=== PATIENT | female | born 2000 | race American Indian/Alaskan Native ===

== ENCOUNTER 2022-03-25 12:27 | Emergency (ER) | payer OTHER ==
[2022-03-25 13:26] LABS: Bilirubin,Urine NEG (Negative); Blood,Urine NEG (Negative); Color,Urine Yellow (Yellow); Protein,Urine <15 mg/dL mg/dL (Negative); Urobilinogen,Urine < 2.0 mg/dL (<2.0)
[2022-03-25 13:34] LABS: Bacteria,Urine 1+ /HPF (Negative); Mucus,Urine FEW /HPF; RBC,Urine < 1.0 /HPF (0.0-6.0)
[2022-03-25 13:36] LABS: HCG Qualitative,Urine Positive (Negative)
[2022-03-25 14:00] LABS: Basophils % (Auto) 0.3 % (0.0-1.8); Eosinophils # (Auto) 0.1 K/mm3 (0.0-0.4); Eosinophils % (Auto) 0.7 % (0.0-4.3); Hematocrit 34.6 % (30.3-42.9); Hemoglobin 11.8 gm/dl (10.1-14.3); Lymphocytes # (Auto) 1.8 K/mm3 (1.2-5.4); Lymphocytes % (Auto) 21.4 % (13.4-35.0); Mean Corpuscular HGB Conc 34 % (30-34); Mean Corpuscular Volume 88 fl (79-97); Monocytes # (Auto) 0.3 K/mm3 (0.0-0.8); Monocytes % (Auto) 3.9 % (0.0-7.3); Platelet Count 188 K/mm3 (140-440); Red Blood Count 3.92 M/mm3 (3.65-5.03); Red Cell Distribution Width 15.4 % (13.2-15.2)
[2022-03-25 14:14] LABS: Alanine Aminotransferase 9 units/L (7-56); Albumin 4.1 g/dL (3.9-5); Blood Urea Nitrogen 6 mg/dL (7-17); Calcium 9.9 mg/dL (8.4-10.2); Hemolysis Index 1
[2022-03-25 14:28] LABS: BUN/Creatinine Ratio 10
--- NOTE | 2022-03-25 16:30 | Emergency Department Report ---
ED Abdominal Pain HPI - General Chief Complaint: Abdominal Pain Stated Complaint: CHEST PAIN/VOMITING BLOOD/HEADACHE Source: patient Mode of arrival: Ambulatory Limitations: No Limitations - History of Present Illness Initial Comments: 13 weeks 2 Para 0 A0 presents to the ED complaining of nausea and vomiting x1 day. Patient stated that 1 day ago she vomited x1. She states a headache on yesterday but no headache today. Patient denies any abdominal pain at present time patient states that she is currently followed by [facility]. Patient states that she was outside in the sun when she began to have a headache on yesterday. Patient denies any vomiting today. She was drinking and eating Landry when walking in the room. She was able to tolerate food without any difficulty. She denies any vaginal bleeding at present time. Patient is alert and oriented x3. No acute distress noted. No ill appearance noted. Onset/Timin -: days(s) Severity scale (0 -10): 0 - Related Data Previous Rx's Medication Instructions Recorded Last Taken Type Doxylamine Succinate/Vit B6 1 each PO DAILY 30 Days #30 tab 03/25/22 Unknown Rx [Diclegis Dr 10-10 mg Tablet] Allergies Allergy/AdvReac Type Severity Reaction Status Date / Time vancomycin AdvReac Unknown Verified 03/25/22 12:37 ED Review of Systems ROS: Stated complaint: CHEST PAIN/VOMITING BLOOD/HEADACHE Other details as noted in HPI Constitutional: denies: chills, fever Eyes: denies: eye pain, eye discharge, vision change ENT: denies: ear pain, throat pain Respiratory: denies: cough, shortness of breath, wheezing Cardiovascular: denies: chest pain, palpitations Endocrine: no symptoms reported Gastrointestinal: nausea. denies: abdominal pain, diarrhea Genitourinary: denies: urgency, dysuria, discharge Musculoskeletal: denies: back pain, joint swelling, arthralgia Skin: denies: rash, lesions Neurological: denies: headache, weakness, paresthesias Psychiatric: denies: anxiety, depression Hematological/Lymphatic: denies: easy bleeding, easy bruising ED Past Medical Hx - Past Medical History Previous Medical History?: Yes Additional medical history: HYPOGLYCEMIA, HERNIATED DISC, NO SURGERY - Medications Home Medications: Home Medications Medication Instructions Recorded Confirmed Last Taken Type Doxylamine Succinate/Vit B6 1 each PO DAILY 30 Days #30 tab 03/25/22 Unknown Rx [Diclegis Dr 10-10 mg Tablet] ED Physical Exam - General Limitations: No Limitations General appearance: alert, in no apparent distress - Head Head exam: Present: atraumatic, normocephalic - Eye Eye exam: Present: normal appearance - ENT ENT exam: Present: mucous membranes moist - Neck Neck exam: Present: normal inspection - Respiratory Respiratory exam: Present: normal lung sounds bilaterally. Absent: respiratory distress - Cardiovascular Cardiovascular Exam: Present: regular rate, normal rhythm. Absent: systolic murmur, diastolic murmur, rubs, gallop - GI/Abdominal GI/Abdominal exam: Present: soft, normal bowel sounds - Extremities Exam Extremities exam: Present: normal inspection - Back Exam Back exam: Present: normal inspection - Neurological Exam Neurological exam: Present: alert, oriented X3 - Psychiatric Psychiatric exam: Present: normal affect, normal mood - Skin Skin exam: Present: warm, dry, intact, normal color. Absent: rash ED Course Vital Signs 03/25/22 03/25/22 12:34 15:58 Temperature 98.5 F 98.0 F Pulse Rate 77 89 Respiratory 14 18 Rate Blood Pressure 149/93 Blood Pressure 147/77 [Right] O2 Sat by Pulse 100 100 Oximetry ED Medical Decision Making - Lab Data Result diagrams: 03/25/22 13:18 03/25/22 13:18 - Medical Decision Making 13 weeks 2 Para 0 A0 presents to the ED complaining of nausea and vomiting x1 day. Patient stated that 1 day ago she vomited x1. She states a headache on yesterday but no headache today. Patient denies any abdominal pain at present time patient states that she is currently followed by [facility]. Patient states that she was outside in the sun when she began to have a headache on yesterday. Patient denies any vomiting today. She was drinking and eating Landry when walking in the room. She was able to tolerate food without any difficulty. She denies any vaginal bleeding at present time. Patient is alert and oriented x3. No acute distress noted. No ill appearance noted. Physical examination is unremarkable Rechecked the patient is resting quietly quietly and comfortable and feeling better. I discussed the results of diagnostic study, my clinical impression and the plan for further treatment with the patient. Patient agrees with plan and discharge at this present time. All question addressed. I have given the patient instruction regarding a diagnosis ,expectation ,follow-up and return precaution. I explained to the patient that emergent condition may arise and to return to the ED for new worsen and any new persisting condition. I have explained the importance of following up with the primary care physician or referral physician listed below has instructed. The patient verbalized understanding of discharge instruction. Abnormal Lab Results 03/25/22 03/25/22 03/25/22 12:39 12:45 13:18 WBC 8.4 RBC 3.92 Hgb 11.8 Hct 34.6 MCV 88 MCH 30 MCHC 34 RDW 15.4 H Plt Count 188 Lymph % (Auto) 21.4 [place] % (Auto) 3.9 Eos % (Auto) 0.7 Baso % (Auto) 0.3 Lymph # (Auto) 1.8 [place] # (Auto) 0.3 Eos # (Auto) 0.1 Baso # (Auto) 0.0 Seg Neutrophils % 73.7 H Seg Neutrophils # 6.2 Sodium Potassium Chloride Carbon Dioxide Anion Gap BUN Creatinine Estimated GFR BUN/Creatinine Ratio Glucose POC Glucose 83 Calcium Total Bilirubin AST ALT Alkaline Phosphatase Total Protein Albumin Albumin/Globulin Ratio Urine Color Yellow Urine Turbidity Hazy Urine pH 5.0 Ur Specific [place] 1.018 Urine Protein <15 mg/dl Urine Glucose (UA) Neg Urine Ketones Neg Urine Blood Neg Urine Nitrite Neg Urine Bilirubin Neg Urine Urobilinogen < 2.0 Ur Leukocyte Esterase Neg Urine WBC (Auto) 3.0 Urine RBC (Auto) < 1.0 U Epithel Cells (Auto) 13.0 Urine Bacteria (Auto) 1+ Urine Mucus Few Urine HCG, Qual Positive A 03/25/22 13:18 WBC RBC Hgb Hct MCV MCH MCHC RDW Plt Count Lymph % (Auto) [place] % (Auto) Eos % (Auto) Baso % (Auto) Lymph # (Auto) [place] # (Auto) Eos # (Auto) Baso # (Auto) Seg Neutrophils % Seg Neutrophils # Sodium 135 L Potassium 3.8 Chloride 100.8 Carbon Dioxide 23 Anion Gap 15 BUN 6 L Creatinine 0.6 Estimated GFR > 60 BUN/Creatinine Ratio 10 Glucose 101 H POC Glucose Calcium 9.9 Total Bilirubin 0.20 AST 15 ALT 9 Alkaline Phosphatase 51 Total Protein 7.9 Albumin 4.1 Albumin/Globulin Ratio 1.1 Urine Color Urine Turbidity Urine pH Ur Specific [place] Urine Protein Urine Glucose (UA) Urine Ketones Urine Blood Urine Nitrite Urine Bilirubin Urine Urobilinogen Ur Leukocyte Esterase Urine WBC (Auto) Urine RBC (Auto) U Epithel Cells (Auto) Urine Bacteria (Auto) Urine Mucus Urine HCG, Qual Critical care attestation.: If time is entered above; I have spent that time in minutes in the direct care of this critically ill patient, excluding procedure time. ED Disposition Clinical Impression: Nausea and vomiting during Disposition: 01 HOME / SELF CARE / HOMELESS Is pt being admited?: No Does the pt Need Aspirin: No Condition: Stable Instructions: Abdominal Pain (ED), Hyperemesis Gravidarum Additional Instructions: Take medication as prescribed Return to ED for worsening symptoms Prescriptions: Doxylamine Succinate/Vit B6 [Mikalas 10-10 mg Tablet] 1 each PO DAILY 30 Days #30 tab Referrals: [facility] [Provider Group] - 3-5 Days Forms: Work/School Release Form(ED) Time of Disposition: 16:35
[2022-03-25 18:05] VITALS: BP 131/79
== END 2022-03-25 18:03 | disposition home or self-care (01) ==
LOC: ED 12:27
DX: O21.9 Vomiting of pregnancy, unspecified (principal); Z3A.13 13 weeks gestation of pregnancy; E16.2 Hypoglycemia, unspecified; Z88.1 Allergy status to other antibiotic agents
CPT/HCPCS: 36415; 80053; 81001; 81025; 82962; 85025; 99283

== ENCOUNTER 2022-04-30 15:40 | Emergency (ER) | payer OTHER ==
--- NOTE | 2022-04-30 16:09 | Emergency Department Report ---
<MARKOSOWMYA A - Last Filed: 04/30/22 16:10> ED Female HPI - General Stated complaint: NAUSEA/PRESSURE IN LOWER L ABD Time Seen by Provider: 04/30/22 16:07 Source: patient Mode of arrival: Ambulatory Limitations: No Limitations - History of Present Illness Initial comments: AB 1 MIS 1 LMP 12/17 NO VAG BLEED OR DC CO LLQ PAIN AND PRESSURE MY OBGYN THEY COULD NOT SEE HER 18W PREG PRIOR U/S NO ECTOPIC - Related Data Allergies Allergy/AdvReac Type Severity Reaction Status Date / Time vancomycin AdvReac Unknown Verified 04/30/22 16:11 ED Review of Systems Comment: All other systems reviewed and negative ED Past Medical Hx - Past Medical History Previous Medical History?: Yes Additional medical history: HYPOGLYCEMIA, HERNIATED DISC, NO SURGERY - Surgical History Past Surgical History?: Yes - Family History Family history: no significant - Social History Smoking Status: Never Smoker Substance Use Type: None ED Physical Exam - General Limitations: No Limitations General appearance: alert, in no apparent distress - Head Head exam: Present: atraumatic, normocephalic - Eye Eye exam: Present: normal appearance - ENT ENT exam: Present: mucous membranes moist - Neck Neck exam: Present: normal inspection - Respiratory Respiratory exam: Present: normal lung sounds bilaterally. Absent: respiratory distress - Cardiovascular Cardiovascular Exam: Present: regular rate, normal rhythm. Absent: systolic murmur, diastolic murmur, rubs, gallop - GI/Abdominal GI/Abdominal exam: Present: soft, normal bowel sounds - Extremities Exam Extremities exam: Present: normal inspection - Back Exam Back exam: Present: normal inspection - Neurological Exam Neurological exam: Present: alert, oriented X3 - Psychiatric Psychiatric exam: Present: normal affect, normal mood - Skin Skin exam: Present: warm, dry, intact, normal color. Absent: rash ED Medical Decision Making - Medical Decision Making Vital Signs 04/30/22 16:07 Temperature 98.6 F Pulse Rate 89 Respiratory 18 Rate Blood Pressure 149/77 [Right] O2 Sat by Pulse 98 Oximetry TO ER FOR EVAL ED Disposition Clinical Impression: Abdominal pain during in second trimester, Hyperemesis gravidarum Disposition: 01 HOME / SELF CARE / HOMELESS Is pt being admited?: No Does the pt Need Aspirin: No Condition: Stable Instructions: Abdominal Pain During , [id number], Hyperemesis Gravidarum, Nausea and Vomiting, Adult, [id number] Additional Instructions: All lab test results are reviewed and are all nonactionable. Maintain a clear liquid diet for 12 to 24 hours, take medication as needed for nausea and vomiting. Therefore take medication with food, drink plenty of fluids and follow-up with your primary care physician in 7 to 10 days for reevaluation. Return to the ED immediately if symptoms get worse. Prescriptions: Promethazine [Phenergan] [address] QHS PRN #15 supp.rect PRN Reason: Nausea Acetaminophen [Tylenol] 500 mg PO Q6HR PRN #40 tablet PRN Reason: Pain , Severe (7-10) Ondansetron [Zofran Odt] 4 mg PO Q6HR PRN #20 tab.rapdis PRN Reason: Nausea Referrals: FRAN RUANO MD [Primary Care Provider] - 3-5 Days Forms: Work/School Release Form(ED) Print Language: BELARUSIAN <SURESH PIMENTEL - Last Filed: 05/01/22 16:11> ED Review of Systems ROS: Stated complaint: NAUSEA/PRESSURE IN LOWER L ABD Other details as noted in HPI ED Course Vital Signs 04/30/22 05/01/22 16:07 01:13 Temperature 98.6 F Pulse Rate 89 86 Respiratory 18 12 Rate Blood Pressure 149/77 137/73 [Right] O2 Sat by Pulse 98 100 Oximetry ED Medical Decision Making - Lab Data Result diagrams: 04/30/22 20:50 04/30/22 20:50 - Medical Decision Making Patient was managed independently by the mid level below , I was available for c onsult but i wasn't directly involved in the care of this patient Critical care attestation.: If time is entered above; I have spent that time in minutes in the direct care of this critically ill patient, excluding procedure time. ED Disposition Is pt being admited?: No Does the pt Need Aspirin: No
[2022-04-30 16:42] LABS: Bacteria,Urine 1+ /HPF (Negative); Mucus,Urine FEW /HPF
[2022-04-30 16:45] LABS: Bilirubin,Urine Negative (Negative); Blood,Urine Negative (Negative); Color,Urine Yellow (Yellow); PH,Urine 5.5 (5.0-7.0); Urobilinogen,Urine < 2.0 mg/dL (<2.0)
[2022-04-30] MEDS ORDERED: FAMOTIDINE 20 MG/2 ML INJ IV ONE (20:40)
[2022-04-30] MEDS ORDERED: SODIUM CHLORIDE 0.9% 1000 ML 1,000 ML IV ONE (20:40)
[2022-04-30] MEDS ORDERED: METOCLOPRAMIDE 10 MG/2 ML INJ IV ONE (20:41)
[2022-04-30] MEDS ORDERED: diphenhydrAMINE 50 MG/ML VIAL IV ONE (20:41)
[2022-04-30 21:08] LABS: Basophils % (Auto) 0.4 % (0.0-1.8); Eosinophils # (Auto) 0.1 K/mm3 (0.0-0.4); Hemoglobin 11.8 gm/dl (10.1-14.3); Lymphocytes # (Auto) 2.2 K/mm3 (1.2-5.4); Mean Corpuscular HGB Conc 35 % (30-34); Mean Corpuscular Volume 88 fl (79-97); Monocytes # (Auto) 0.5 K/mm3 (0.0-0.8); Monocytes % (Auto) 6.1 % (0.0-7.3); Platelet Count 201 K/mm3 (140-440); Red Blood Count 3.87 M/mm3 (3.65-5.03); Red Cell Distribution Width 15.6 % (13.2-15.2)
--- NOTE | 2022-04-30 22:06 | Ultrasound Report ---
OBSTETRIC ULTRASOUND INDICATION: PELVIC PAIN - 18 WEEKS GESTATION COMPARISON: No prior relevant imaging studies are available for comparison. TECHNIQUE: Transabdominal imaging was performed. FINDINGS: Single viable intrauterine is identified. lie: Breech. Heart rate: 145 bpm. measurements are as follows: Biparietal diameter 4.1 cm, 18 weeks 2 days Head circumference 14.9 cm, 18 weeks 0 days Abdominal circumference 11.3 cm, 17 weeks 1 day Femur length 2.4 cm, 17 weeks 1 day Amniotic fluid is subjectively within normal limits. There is a grade 1 anterior placenta. Cervix is closed measuring 3.2 cm. CONCLUSION: Single viable intrauterine currently in breech position with sonographic gestational age of 17 weeks 5 days. Amniotic fluid is subjectively within normal limits. Signer Name: Daniel Contreras MD Signed: 04/30/2022 10:02 PM Workstation Name: [id number]
[2022-04-30 22:22] LABS: Alanine Aminotransferase 14 units/L (7-56); Albumin 3.8 g/dL (3.9-5); Blood Urea Nitrogen 6 mg/dL (7-17); Calcium 9.5 mg/dL (8.4-10.2); Hemolysis Index 3
[2022-04-30 22:23] LABS: BUN/Creatinine Ratio 12
--- NOTE | 2022-05-01 00:50 | Emergency Department Report ---
ED N/V/D HPI - General Stated complaint: NAUSEA/PRESSURE IN LOWER L ABD Time Seen by Provider: 04/30/22 16:07 Source: patient Mode of arrival: Ambulatory Limitations: No Limitations - History of Present Illness Initial comments: Patient is a A2 21-year-old -Burkin[place] female who is approximately 18 weeks gestation presents to the ED with complaint of acute onset persistent intractable nausea and vomiting for the last 1 week. Patient also complains of diffuse lower abdominal pain for the last 3 days. Patient states that she has not been able to keep anything down especially in the last 2 days because of intractable nausea and vomiting. Patient denies hematemesis, fever, chills, chest pain or shortness of breath, headache, lightheadedness, dizziness, syncope, dysuria, urinary frequency and urgency, vaginal bleeding, vaginal discharge or cough. MD complaint: nausea, vomiting, abdominal pain (lower abdominal pain), other (Approximately 18 weeks gestation) -: Gradual, week(s) (1) Description of Vomiting: food contents, watery, bilious Associated Abdominal Pain: Yes (pelvic pain) Location: diffuse Radiation: none Severity: severe Pain Scale: 7 Quality: cramping, sharp Consistency: constant Improves with: none Worsens with: vomiting Context: other () Associated Symptoms: denies other symptoms, headaches, loss of appetite, malaise, nausea/vomiting. denies: myalgias, chest pain, cough, diaphoresis, fever/chills, rash, dysuria, shortness of breath, syncope - Related Data Previous Rx's Medication Instructions Recorded Last Taken Type Acetaminophen [Tylenol] 500 mg PO Q6HR PRN #40 tablet 05/01/22 Unknown Rx Ondansetron [Zofran Odt] 4 mg PO Q6HR PRN #20 tab.rapdis 05/01/22 Unknown Rx Promethazine [Phenergan] 25 mg SD QHS PRN #15 supp.rect 05/01/22 Unknown Rx Allergies Allergy/AdvReac Type Severity Reaction Status Date / Time vancomycin AdvReac Unknown Verified 04/30/22 16:11 ED Review of Systems ROS: Stated complaint: NAUSEA/PRESSURE IN LOWER L ABD Other details as noted in HPI Constitutional: denies: chills, fever Eyes: denies: eye pain, eye discharge, vision change ENT: denies: ear pain, throat pain Respiratory: denies: cough, shortness of breath, wheezing Cardiovascular: denies: chest pain, palpitations Endocrine: no symptoms reported Gastrointestinal: abdominal pain (lower), nausea, vomiting. denies: diarrhea Genitourinary: denies: urgency, dysuria, discharge Musculoskeletal: denies: back pain, joint swelling, arthralgia Skin: denies: rash, lesions Neurological: denies: headache, weakness, paresthesias Psychiatric: denies: anxiety, depression Hematological/Lymphatic: denies: easy bleeding, easy bruising ED Past Medical Hx - Past Medical History Previous Medical History?: Yes Additional medical history: HYPOGLYCEMIA, HERNIATED DISC, NO SURGERY - Surgical History Past Surgical History?: Yes - Social History Smoking Status: Never Smoker Substance Use Type: None - Medications Home Medications: Home Medications Medication Instructions Recorded Confirmed Last Taken Type Acetaminophen [Tylenol] 500 mg PO Q6HR PRN #40 tablet 05/01/22 Unknown Rx Ondansetron [Zofran Odt] 4 mg PO Q6HR PRN #20 tab.rapdis 05/01/22 Unknown Rx Promethazine [Phenergan] 25 mg SD QHS PRN #15 supp.rect 05/01/22 Unknown Rx ED Physical Exam - General Limitations: No Limitations General appearance: alert, in no apparent distress - Head Head exam: Present: atraumatic, normocephalic, normal inspection - Eye Eye exam: Present: normal appearance, PERRL, EOMI Pupils: Present: normal accommodation - ENT ENT exam: Present: normal exam, normal orophraynx, mucous membranes moist, TM's normal bilaterally, normal external ear exam - Neck Neck exam: Present: normal inspection, full ROM. Absent: tenderness - Respiratory Respiratory exam: Present: normal lung sounds bilaterally. Absent: respiratory distress, wheezes, rales, stridor, chest wall tenderness, accessory muscle use, decreased breath sounds, prolonged expiratory - Cardiovascular Cardiovascular Exam: Present: regular rate, normal rhythm, normal heart sounds. Absent: systolic murmur, diastolic murmur, rubs, gallop - GI/Abdominal GI/Abdominal exam: Present: soft, tenderness (palpable mild lower abdominal tenderness), normal bowel sounds. Absent: guarding, rebound, hyperactive bowel sounds, hypoactive bowel sounds, organomegaly, mass - Extremities Exam Extremities exam: Present: normal inspection, full ROM, normal capillary refill. Absent: tenderness - Back Exam Back exam: Present: normal inspection, full ROM. Absent: tenderness, CVA tenderness (R), CVA tenderness (L), muscle spasm, paraspinal tenderness, vertebral tenderness, rash noted - Neurological Exam Neurological exam: Present: alert, oriented X3, CN II-XII intact, normal gait, reflexes normal - Psychiatric Psychiatric exam: Present: normal affect, normal mood - Skin Skin exam: Present: warm, dry, intact, normal color. Absent: rash ED Course Vital Signs 04/30/22 16:07 Temperature 98.6 F Pulse Rate 89 Respiratory 18 Rate Blood Pressure 149/77 [Right] O2 Sat by Pulse 98 Oximetry ED Medical Decision Making - Lab Data Result diagrams: 04/30/22 20:50 04/30/22 20:50 - Radiology Data Radiology results: report reviewed, image reviewed [facility] [address] [place] [address] Ultrasound Report Signed Patient: ADAIR OSCAR MR#: [id number] : 2000 Acct:[id number] Age/Sex: 21 / F ADM Date: 04/30/22 Loc: ED Attending Dr: Ordering Physician: JACQUELINE POST Date of Service: 04/30/22 Procedure(s): US OB >= 14 weeks Fetus Accession Number(s): [id number] cc: JACQUELINE POST OBSTETRIC ULTRASOUND INDICATION: PELVIC PAIN - 18 WEEKS GESTATION COMPARISON: No prior relevant imaging studies are available for comparison. TECHNIQUE: Transabdominal imaging was performed. FINDINGS: Single viable intrauterine is identified. lie: Breech. Heart rate: 145 bpm. measurements are as follows: Biparietal diameter 4.1 cm, 18 weeks 2 days Head circumference 14.9 cm, 18 weeks 0 days Abdominal circumference 11.3 cm, 17 weeks 1 day Femur length 2.4 cm, 17 weeks 1 day Amniotic fluid is subjectively within normal limits. There is a grade 1 anterior placenta. Cervix is closed measuring 3.2 cm. CONCLUSION: Single viable intrauterine currently in breech position with sonographic gestational age of 17 weeks 5 days. Amniotic fluid is subjectively within normal limits. Signer Name: Daniel Contreras MD Signed: 04/30/2022 10:02 PM Workstation Name: [id number] Transcribed By: ALESSANDRO Dictated By: Daniel Contreras MD Electronically Authenticated By: Daniel Contreras MD Signed Date/Time: 04/30/222201 DD/ 99 TD/TT: Print Cancel - Medical Decision Making This is a A2 21-year-old -Burkin[place] female who is approximately 18 weeks gestation presents to the ED with complaint of acute onset persistent intractable nausea and vomiting for the last 1 week. Patient also complains of diffuse lower abdominal pain for the last 3 days. Patient states that she has not been able to keep anything down especially in the last 2 days because of i ntractable nausea and vomiting. In the ED, patient is alert and oriented x3 and is not in any distress. Patient was treated for nausea and vomiting in the ED with antiemetics. Patient also received normal saline 1 L IV bolus x1. On reevaluation, patient's nausea and vomiting and pain the pelvic ultrasound showed a single viable intrauterine currently in breech position with sonographic gestational age of 17 weeks 5 days with heart rate of 145 bpm. The amniotic fluid is subjectively within normal limits. Resolved. Patient felt better, passed oral fluid challenge in the ED. Patient was discharged home on medications and advised to maintain a clear liquid diet for 12 to 24 hours, while taking medications for nausea and vomiting. Patient was advised to follow-up with her primary care physician or [facility] [employer] physician in 5 to 7 days for reevaluation or return to the ED immediately if symptoms get worse. - Differential Diagnosis UTI; Dehydration; GERD; Ovarian cyst; Critical care attestation.: If time is entered above; I have spent that time in minutes in the direct care of this critically ill patient, excluding procedure time. ED Disposition Clinical Impression: Hyperemesis gravidarum, Nausea and vomiting in prior to 22 weeks gestation, Abdominal pain during in second trimester Disposition: 01 HOME / SELF CARE / HOMELESS Is pt being admited?: No Does the pt Need Aspirin: No Condition: Stable Instructions: Hyperemesis Gravidarum, Nausea and Vomiting, Adult, [id number], Abdominal Pain During , [id number] Additional Instructions: All lab test results are reviewed and are all nonactionable. Maintain a clear liquid diet for 12 to 24 hours, take medication as needed for nausea and vomiting. Therefore take medication with food, drink plenty of fluids and follow-up with your primary care physician in 7 to 10 days for reevaluation. Return to the ED immediately if symptoms get worse. Prescriptions: Promethazine [Phenergan] 25 mg SD QHS PRN #15 supp.rect PRN Reason: Nausea Acetaminophen [Tylenol] 500 mg PO Q6HR PRN #40 tablet PRN Reason: Pain , Severe (7-10) Ondansetron [Zofran Odt] 4 mg PO Q6HR PRN #20 tab.rapdis PRN Reason: Nausea Referrals: FRAN RUANO MD [Primary Care Provider] - 3-5 Days Forms: Work/School Release Form(ED) Time of Disposition: 00:51 Print Language: BURMESE
[2022-05-01 01:14] VITALS: BP 137/73
== END 2022-05-01 01:14 | disposition home or self-care (01) ==
LOC: ED 15:40
DX: O26.892 Other specified pregnancy related conditions, second trimester (principal); R10.9 Unspecified abdominal pain; O21.1 Hyperemesis gravidarum with metabolic disturbance; Z3A.00 Weeks of gestation of pregnancy not specified
CPT/HCPCS: 36415; 76805; 80053; 81001; 84702; 85025; 96361; 96374; 96375; 99284; J1200; J2765; J3490; J7030